=== PATIENT | female | born 1960 | race Caucasian/White ===

== ENCOUNTER 2024-03-25 14:37 | Emergency (ER) | payer MEDICAID ==
[~2024-03-25] VITALS: Ht 162.6 cm; Wt 70.8 kg
[2024-03-25] MEDS: IV NS 0.9% 1,000 ML BAG IV ONE (16:00)
[2024-03-25 16:10] LABS: BASOPHILS % (AUTO) 0.2 % (0.0-2.0); EOSINOPHILS # (AUTO) 0.1 K/uL (0.0-0.7); EOSINOPHILS % (AUTO) 0.6 % (0.0-6.0); HEMATOCRIT 26 % (33-45); HEMOGLOBIN 9.1 g/dL (11.5-14.8); LYMPHOCYTES # (AUTO) 0.5 K/uL (0.8-4.8); LYMPHOCYTES % (AUTO) 3.5 % (20.0-44.0); MEAN CORPUSCULAR HEMOGLOBIN 31 PG (26.0-33.0); MEAN CORPUSCULAR HGB CONC 35 g/dl (31.0-36.0); MEAN CORPUSCULAR VOLUME 90 fL (82-100); MONOCYTES # (AUTO) 0.7 K/uL (0.1-1.30); MONOCYTES % (AUTO) 4.9 % (2.0-12.0); NEUTROPHILS # (AUTO) 12.8 K/uL (1.8-8.9); NEUTROPHILS % (AUTO) 90.8 % (43.0-81.0); PLATELET COUNT (AUTO) 402 K/uL (150-450); RED CELL DISTRIBUTION WIDTH 13.4 % (11.5-15.0); WHITE BLOOD COUNT (AUTO) 14.1 K/uL (4.3-11.0)
[2024-03-25] MEDS: CEFEPIME 1 GM in IV D5W 50 ML IV ONE (16:10)
[2024-03-25 16:26] LABS: ALANINE AMINOTRANSFERASE 75 U/L (12-78); ALBUMIN 2.4 g/dL (3.4-5.0); ALKALINE PHOSPHATASE 179 U/L (46-116); ASPARTATE AMINOTRANSFERASE 79 U/L (15-37); BILIRUBIN,DIRECT 0.4 mg/dL (0.0-0.2); BILIRUBIN,TOTAL 0.6 mg/dL (0.2-1.0); CALCIUM, SERUM 8.5 mg/dL (8.5-10.1); CARBON DIOXIDE 27 mmol/L (21-32); CHLORIDE 101 mmol/L (98-107); CREATININE 1.4 mg/dL (0.6-1.3); GLUCOSE 94 mg/dL (74-106); POTASSIUM 3.2 mmol/L (3.5-5.1); SODIUM SERUM 140 mmol/L (136-145); TOTAL PROTEIN, SERUM 6.8 g/dL (6.4-8.2); UREA NITROGEN, BLOOD 28 mg/dL (7-18)
[2024-03-25 16:28] LABS: INR 1.04 (0.91-1.10); PARTIAL THROMBOPLASTIN TIME 36.4 SEC (24.3-34.3)
[2024-03-25 16:31] LABS: LACTIC ACID 1.4 mmol/L (0.4-2.0)
[2024-03-25] MEDS ORDERED: ACETAMINOPHEN 650 MG/SUPP.RECT RC ONE (17:04)
[2024-03-25 17:10] LABS: APPEARANCE,URINE TURBID (CLEAR); BILIRUBIN,URINE NEGATIVE (NEGATIVE); BLOOD, URINE 3+ Ery/uL (NEGATIVE); COLOR,URINE YELLOW (YELLOW); KETONES,URINE NEGATIVE (NEGATIVE); LEUKOCYTE ESTERASE ,URINE 2+ (NEGATIVE); NITRITE, URINE POSITIVE (NEGATIVE); PROTEIN,URINE 1+ mg/dl (NEGATIVE); UGLUCOSE NEGATIVE (NEGATIVE); UROBILINOGEN,URINE 0.2 EU/dL (0.2)
[2024-03-25] MEDS: VANCOMYCIN 1 GM in IV D5W 250 ML IV ONE (17:15)
[2024-03-25] MEDS: ACETAMINOPHEN 650 MG/SUPP.RECT RC ONE (17:17)
[2024-03-25 17:24] LABS: ADD URINE CULTURE YES; BACTERIA,URINE 2+ /HPF (None Seen); WBC,URINE 21-50 /HPF (0-3)
[2024-03-25 19:13] VITALS: TEMP 101
[2024-03-25 21:00] VITALS: BP 113/66; O2SAT 96
[2024-03-25 22:02] LABS: ACETAMINOPHEN <10 ug/ml (10-30); ALCOHOL, BLOOD < 3 mg/dL (0-10); SALICYLATE 2.6 mg/dL (2.8-20.0)
== END 2024-03-26 00:09 | disposition short-term general hospital (02) ==
LOC: ER 14:40
DX: A41.9 Sepsis, unspecified organism (principal); G89.29 Other chronic pain; N17.9 Acute kidney failure, unspecified; N39.0 Urinary tract infection, site not specified; I51.7 Cardiomegaly; M62.82 Rhabdomyolysis; E87.8 Other disorders of electrolyte and fluid balance, not elsewhere classified; R41.0 Disorientation, unspecified; R53.83 Other fatigue; Z87.39 Personal history of other diseases of the musculoskeletal system and connective tissue; Z60.2 Problems related to living alone; Z20.822 Contact with and (suspected) exposure to COVID-19
CPT/HCPCS: 99291; 96365; 96367; 93005; 71045; 70450; 84145; 85025; 80048; 82550; 87040; 87086; 87804; 83605; 80076; 81001; 36415; 84484; 85730; 82962; 82553; 87426; 80143; 80320; J3370; J7060; J7030 ×2; J7040; A4223; J0692; G0480